=== PATIENT | male | born 1945 | race Caucasian/White ===

== ENCOUNTER → 2023-08-14 | Outpatient (CLI) | payer MEDICARE ==
--- NOTE | 2023-08-14 15:49 | MR ---
EXAMINATION TYPE: MR lumbar spine wo/w con DATE OF EXAM: 08/14/2023 1:52 PM CLINICAL INDICATION:Male, 78 years old with history of M54.51 VERTEBROGENIC LOW BACK PAIN; Vertebroge terry low back pain. COMPARISON: None TECHNIQUE: Multi planar, multi sequence imaging was performed utilizing: T1-weighted, T2-weighted, a nd turbo inversion recovery imaging of the lumbar spine. IV Contrast: 11 cc Gadavist. (None if empty) FINDINGS: Alignment: The lumbar vertebral bodies have preserved heights and alignment. Cord: The conus medullaris and the distal spinal cord appear unremarkable with regards to their signa l intensity and morphology. There is no abnormal postcontrast enhancement. Bones/Discs: The spinous processes demonstrate pseudoarticulation. Degeneration changes of the spine with disc space narrowing osteophytes markedly changes and reactive adjoining endplate edema particul minna the L3-L4 during endplates. Discectomy at L2-L3. Facet joint arthropathy throughout the spine. T here is no abnormal postcontrast enhancement. There is some reactive postcontrast enhancement around the right L2-L3 facet joint and to a lesser extent L2. T12-L1: No evidence of significant spinal canal stenosis or neural foraminal stenosis. L1-L2: Disc bulge and facet joint arthropathy result in moderate to severe spinal canal and moderate to severe bilateral neural foraminal stenosis. L2-L3: Disc bulge and facet joint arthropathy result in moderate to severe spinal canal and moderate to severe bilateral neural foraminal stenosis. L3-L4: Disc bulge and facet joint arthropathy result in severe spinal canal and severe bilateral neur al foraminal stenosis. L4-L5: Discectomy with facet joint arthropathy with moderate to severe bilateral neural foraminal shola nosis.. L5-S1: The disc is rounded posterior morphology without significant spinal canal stenosis. Facet join t arthropathy with severe right and moderate severe left neural foraminal stenosis. No significant spinal canal or neural foraminal stenosis in the remainder of the visualized levels. Other findings: None. IMPRESSION: 1. L3-L4 severe spinal canal stenosis with severe bilateral neural foraminal stenosis. 2. L2-L3 and L1-L2 moderate to severe spinal canal stenosis. 3. Multilevel disc degeneration changes with additional areas of moderate and moderate to severe elizabeth ral foraminal stenosis. Reactive enhancement around the right L2-L3 facet joint. 4. 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
== END | disposition home or self-care (01) ==
LOC: RADMRIMAIN 12:27
PROVIDERS: ATTEND Physical Medicine & Rehabilitation
DX: M47.817 Spondylosis without myelopathy or radiculopathy, lumbosacral region (principal); M48.062 Spinal stenosis, lumbar region with neurogenic claudication; M99.73 Connective tissue and disc stenosis of intervertebral foramina of lumbar region; M51.36 Other intervertebral disc degeneration, lumbar region
CPT/HCPCS: 72158; A9585